=== PATIENT | female | born 1945 | race Caucasian/White ===

== ENCOUNTER 2016-12-14 02:52 | Emergency (ER) | payer MEDICARE, MEDICAID ==
[2016-12-14 03:05] VITALS: BMI 34.9
[2016-12-14 03:08] VITALS: TEMP 98.6
--- NOTE | 2016-12-14 03:44 | ED PDOC ---
HPI: Headache Time Seen by Provider: 12/14/16 03:00 Chief Complaint (Nursing): Headache Chief Complaint (Provider): Headache History Per: Patient History/Exam Limitations: no limitations Onset/Duration Of Symptoms: Hrs (8x hours) Current Symptoms Are (Timing): Gone Now Severity: Moderate Preceeding Symptoms: None Associated Symptoms: denies: Photophobia, Blurred Vision, Nausea, Vomiting, Extremity Weakness Additional Complaint(s): 71 year old [place] female with a pertinent medical history of hypertensions and CVA is brought into the ED by EMS with complaints of a headache that started 8x hours ago, and has progressively worsened. She reports that 4x hours after her headache started, she checked her blood pressure and saw that her systolic was in the 200's, which is what prompted her to take an extra dose of metoprolol. She reports that half an hour prior to arrival, her headache worsened, which is what prompted her visit to the ED today. Upon arrival to the ED, patient's blood pressure has normalized, and her headache has resolved. She denies having numbness, change in speech, visual disturbances, focal weakness, nausea, vomiting, chest pain, and shortness of breath. Of note: Patient is the historian, patient's sister is the nurse assistant. PMD: Sydnee Santana MD Past Medical History Reviewed: Historical Data (rheumatoid), Nursing Documentation, Vital Signs Vital Signs: Last Vital Signs Temp 98.6 F 12/14/16 03:05 Pulse 71 12/14/16 03:05 Resp 16 12/14/16 03:05 BP 173/79 H 12/14/16 03:05 Pulse Ox 96 12/14/16 03:05 - Medical History PMH: Alzheimer's Disease, Arthritis, CVA (L arm weakness.), HTN, Hypercholesterolemia, Hypothyroidism, Kidney Stones, Osteoporosis, Chronic Kidney Disease, Rheumatoid Arthritis - Surgical History Other surgeries: craniotomy (2001) - Family History Family History: States: Unknown Family Hx - Social History Current smoker - smoking cessation education provided: No Alcohol: None Drugs: Denies - Immunization History Hx Tetanus Toxoid Vaccination: No Hx Influenza Vaccination: Yes Hx Pneumococcal Vaccination: Yes - Home Medications Home Medications: Ambulatory Orders Medication Instructions Recorded Amlodipine Besylate 5 mg PO DAILY 07/13/13 Clopidogrel Hydrogen Sulfate 75 mg PO DAILY 07/13/13 [Clopidogrel Bisulfate] Donepezil Hydrochloride 5 mg PO DAILY 07/13/13 Fenofibrate [Tricor] 145 mg PO DAILY 07/13/13 Levothyroxine Sodium 0.05 mg PO DAILY 07/13/13 [Levothyroxine] Metoprolol Succinate 50 mg PO DAILY 07/13/13 Lhmpc-5-Easx Ethyl Esters [Lovaza] 1 gm PO DAILY 07/13/13 Omeprazole 20 mg PO DAILY 07/13/13 Prednisone 5 mg PO BID 07/13/13 Potassium Chloride [K-Dur 10] 10 meq PO DAILY #0 ter 06/10/14 - Allergies Allergies/Adverse Reactions: Allergies Allergy/AdvReac Type Severity Reaction Status Date / Time Penicillins Allergy RASH Verified 12/14/16 03:05 Review of Systems ROS Statement: Except As Marked, All Systems Reviewed And Found Negative Eyes: Negative for: Vision Change Cardiovascular: Negative for: Chest Pain Respiratory: Negative for: Shortness of Breath Gastrointestinal: Negative for: Nausea, Vomiting Neurological: Positive for: Headache. Negative for: Weakness, Numbness Physical Exam - Reviewed Nursing Documentation Reviewed: Yes Vital Signs Reviewed: Yes - Physical Exam Appears: Positive for: Well, Non-toxic, No Acute Distress Head Exam: Positive for: ATRAUMATIC, NORMOCEPHALIC Skin: Positive for: Normal Color, Warm, Dry Eye Exam: Positive for: Normal appearance Neck: Positive for: Normal Cardiovascular/Chest: Positive for: Regular Rate, Rhythm Respiratory: Positive for: Normal Breath Sounds. Negative for: Respiratory Distress Gastrointestinal/Abdominal: Positive for: Normal Exam, Soft. Negative for: Tenderness Extremity: Positive for: Normal ROM Neurologic/Psych: Positive for: Alert, Oriented (3x). Negative for: Motor/ Sensory Deficits - Laboratory Results Result Diagrams: 12/14/16 03:40 12/14/16 03:40 - ECG O2 Sat by Pulse Oximetry: 96 (RA) Pulse Ox Interpretation: Normal Medical Decision Making Medical Decision Makin:00 Initial impression: 71 year old female with a headache insetting of hypertension. Initial plan: * CT head w/o contrast * labs * EKG * reevaluation 5:14 CT head w/o contrast read and review by radiologist FINDINGS: Brain: Metallic structure again identified foramen magnum, probably vascular coil. Mild cerebral atrophy. Few scattered periventricular white matter hypoattenuation of small vessel disease. No hemorrhage. No edema. Ventricles: Unremarkable. No ventriculomegaly. Bones/joints: Small midline suboccipital craniectomy defect. No acute fracture. Soft tissues: Unremarkable. Vasculature: Vascular calcifications of cavernous carotid arteries. Sinuses: Unremarkable as visualized. No acute sinusitis. Mastoid air cells: Unremarkable as visualized. No mastoid effusion. Orbits: Mild contour distortion of right globe without change. IMPRESSION: No acute cerebral hemorrhage or edema. 5:40 Patient's blood pressure is stable for the duration of her ED visit. Labs show no clinically significant abnormalities. Patient is instructed to keep a blood pressure log at home and to follow up with within the next 24 hours. Patient is diagnosed with a hypertension headache. Scribe Attestation: Documented by Sarah Aguilar, acting as a scribe for Jason Noonan MD. Provider Scribe Attestation: All medical record entries made by the Scribe were at my direction and personally dictated by me. I have reviewed the chart and agree that the record accurately reflects my personal performance of the history, physical exam, medical decision making, and the department course for this patient. I have also personally directed, reviewed, and agree with the discharge instructions and disposition. Disposition - Clinical Impression Clinical Impression: Headache, HTN (hypertension) - Disposition Disposition Time: 05:40 Condition: IMPROVED Instructions: Hypertension (ED) Forms: [employer] (Italian)
[2016-12-14 03:56] LABS: BASO # 0.1 K/uL (0.0-0.2); BASO % 0.7 % (0.0-2.0); EOS % 0.6 % (0.0-4.0); HEMATOCRIT 33.7 % (34.0-47.0); LYMPH # 1.6 K/uL (1.0-4.3); MEAN CELL VOLUME 73.9 fl (81.0-99.0); MEAN CORPUSCULAR HEMOGLOBIN 23.7 pg (27.0-31.0); MEAN PLATELET VOLUME 8.8 fl (7.2-11.7); MONO # 0.4 K/uL (0.0-0.8); MONO % 5.4 % (0.0-10.0); NEUT # 5.9 K/uL (1.8-7.0); NEUT % 73.3 % (50.0-75.0); NRBC % 0.1 % (0.0-0.0)
[2016-12-14 03:58] LABS: ALB/GLOB RATIO 1.1 (1.0-2.1); ALKALINE PHOSPHATASE 74 U/L (38-126); ALT/SGPT 57 U/L (9-52); AST/SGOT 42 U/L (14-36); BILIRUBIN,TOTAL 0.6 mg/dl (0.2-1.3); BLOOD UREA NITROGEN 16 mg/dl (7-17); CALCIUM 9.3 mg/dL (8.4-10.2); CARBON DIOXIDE 29 mmol/L (22-30); CHLORIDE 102 mmol/L (98-107); GFR AFRICAN-AMERICAN > 60; GLUCOSE,RANDOM 104 mg/dL (65-105); POTASSIUM 3.8 MMOL/L (3.6-5.0); SODIUM 141 mmol/l (132-148); TOTAL PROTEIN 7.3 G/DL (6.3-8.2)
[2016-12-14 03:59] LABS: RBC URINE 3 /hpf (0-3); URINE BILIRUBIN NEGATIVE (NEGATIVE); URINE BLOOD NEGATIVE (NEGATIVE); URINE COLOR STRAW (YELLOW); URINE GLUCOSE (UA) NEG (Normal); URINE KETONE NEGATIVE (NEGATIVE); URINE LEUKOCYTE ESTERASE SMALL Leu/uL (Negative); URINE PROTEIN NEGATIVE (NEGATIVE); URINE UROBILINOGEN 0.2-1.0 mg/dL (0.2-1.0); WBC URINE 18 /hpf (0-5)
--- NOTE | 2016-12-14 05:15 | CT ---
EXAM: CT Head Without Intravenous Contrast EXAM DATE/TIME: 12/14/2016 3:31 AM CLINICAL HISTORY: 71 years old, female; Pain; Headache; Prior surgery; Surgery date: 6+ months; Surgery type: Craniotomy TECHNIQUE: Axial computed tomography images of the head/brain without intravenous contrast. All CT scans at this facility use one or more dose reduction techniques, viz.: automated exposure control; ma/kV adjustment per patient size (including targeted exams where dose is matched to indication; i.e. head); or iterative reconstruction technique. Coronal and sagittal reformatted images were created and reviewed. COMPARISON: CT - HEAD W/O CONTRAST 05/30/2014 8:25:18 AM FINDINGS: Brain: Metallic structure again identified foramen magnum, probably vascular coil. Mild cerebral atrophy. Few scattered periventricular white matter hypoattenuation of small vessel disease. No hemorrhage. No edema. Ventricles: Unremarkable. No ventriculomegaly. Bones/joints: Small midline suboccipital craniectomy defect. No acute fracture. Soft tissues: Unremarkable. Vasculature: Vascular calcifications of cavernous carotid arteries. Sinuses: Unremarkable as visualized. No acute sinusitis. Mastoid air cells: Unremarkable as visualized. No mastoid effusion. Orbits: Mild contour distortion of right globe without change. IMPRESSION: No acute cerebral hemorrhage or edema.
[2016-12-14 05:59] VITALS: BP 158/72; PULSE 62; RESP 17; O2SAT 98
--- NOTE | 2016-12-15 11:03 | CARD ---
APPROVED REPORT EKG Measurement Heart [id number] <Conclusion> Normal sinus rhythm Left ventricular hypertrophy with repolarization abnormality Cannot rule out Septal infarct, age undetermined Abnormal ECG
== END 2016-12-14 06:09 | disposition home or self-care (01) ==
LOC: H.ER 02:52
DX: I10 Essential (primary) hypertension (principal); R51 Headache; G30.9 Alzheimer's disease, unspecified; Z87.442 Personal history of urinary calculi; N18.9 Chronic kidney disease, unspecified; M81.0 Age-related osteoporosis without current pathological fracture; M06.9 Rheumatoid arthritis, unspecified